=== PATIENT | male | born 1940 | race Caucasian/White ===

== ENCOUNTER 2017-12-07 09:02 | Emergency (ER) | payer OTHER ==
[~2017-12-07] VITALS: Ht 180.3 cm; Wt 127.7 kg
[~2017-12-07 09:02] MED LIST: ALEVE220 MG PO; AMLODIPINE BESY10 MG PO; ATORVASTATIN CA40 MG PO; CALCIUM + D SO1 EACH PO; CINNAMON500 MG PO; DAILY VALUE1 EACH PO; EXTRA STRENGTH500 M1 PO; FUROSEMIDE20 MG PO; GLIPIZIDE XL10 MG PO; GLUCOSAMINE-CH1 EA22 PO; IRBESARTAN300 MG PO; LABETALOL HCL100 MG PO; LEVEMIR FL100 UNIT/1 SC; LO-DOSE ASPIRIN81 M2 PO; NITROSTAT0.4 MG SL; NORVASC5 MG PO; OMEGA-31000 M1 PO; POTASSIUM CITR10 MEQ PO; TAMSULOSIN HCL0.4 MG PO; TERAZOSIN HCL2 MG PO
[2017-12-07 10:09] LABS: HEMATOCRIT 37.3 % (38.0-50.0); HEMOGLOBIN 12.7 G/DL (12.5-16.6); MCH 31.7 PG (29.0-34.0); PLATELET COUNT 192 K/uL (156-360); RBC DIS.WIDTH-CV 12.2 % (11.8-14.6); RBC DIS.WIDTH-SD 42.1 % (39-53); RED BLOOD COUNT 4.01 M/uL (4.00-5.50); WHITE BLOOD COUNT 4.5 K/uL (4.1-10.2)
[2017-12-07 10:21] LABS: CHLORIDE 109 mEq/L (99-109); POTASSIUM 5.1 mEq/L (3.7-5.4); SODIUM 139 mEq/L (136-147)
[2017-12-07 10:23] LABS: GLUCOSE 122 mg/dL (70-99)
[2017-12-07 10:27] LABS: CREATININE 1.3 mg/dL (0.6-1.3); GFR ESTIMATE (CALCULATED) 57 mL/min/ (58.99-99999)
[2017-12-07 10:28] LABS: UREA NITROGEN (BUN) 35 mg/dL (9-23)
[2017-12-07] MEDS ORDERED: MOTRIN600 MG PO (13:20)
[2017-12-07 13:35] VITALS: BP 158/67
== END 2017-12-07 14:24 | disposition home or self-care (01) ==
LOC: EME 09:02
PROVIDERS: Emergency Medicine
DX: M54.9 Dorsalgia, unspecified (principal); M79.605 Pain in left leg; I10 Essential (primary) hypertension; E78.5 Hyperlipidemia, unspecified; K21.9 Gastro-esophageal reflux disease without esophagitis; E11.9 Type 2 diabetes mellitus without complications; G47.30 Sleep apnea, unspecified; G43.909 Migraine, unspecified, not intractable, without status migrainosus; I25.2 Old myocardial infarction; Z79.4 Long term (current) use of insulin; Z79.82 Long term (current) use of aspirin; Z85.9 Personal history of malignant neoplasm, unspecified; Z87.442 Personal history of urinary calculi; Z90.49 Acquired absence of other specified parts of digestive tract
CPT/HCPCS: 73502; 80048; 85027; 93971; 99281; 99285; J1885